=== PATIENT | female | born 1995 | race African-American/Black ===

== ENCOUNTER 2022-11-02 13:20 | Emergency (ER) | payer MEDICAID ==
[~2022-11-02] VITALS: Ht 167.6 cm; Wt 82.0 kg
[2022-11-02 13:30] VITALS: BP 110/66
[2022-11-02] MEDS ORDERED: IBUPROFEN 600MG TABLET PO STA (14:20)
[2022-11-02 15:24] LABS: BASOPHILS % 0.3 % (0.0-2.0); EOSINOPHILS % 0.2 % (0.0-5.0); HEMATOCRIT. 42.4 % (36.0-48.0); HEMOGLOBIN. 13.7 g/dL (12.0-16.0); LYMPHOCYTES % 11.4 % (20.0-50.0); MEAN CORPUSCULAR HEMOGLOBIN 25.5 pg (28.0-32.0); MEAN CORPUSCULAR VOLUME 78.9 fL (81.0-99.0); MONOCYTES % 3.8 % (2.0-8.0); NEUTROPHILS % 84.3 % (40.0-76.0); PLATELET 387 x1000/uL (130-400); RED BLOOD CELL COUNT 5.37 mill/uL (4.2-5.4); RED CELL DISTRIBUTION WIDTH 15.6 % (11.6-14.6)
[2022-11-02 15:34] LABS: CHLORIDE 112 mEq/L (98-107)
[2022-11-02 15:54] LABS: CLARITY URINE CLEAR (CLEAR); COLOR URINE YELLOW (YELLOW); KETONES URINE NEGATIVE (NEGATIVE); LEUKOCYTE ESTERASE URINE TRACE (NEGATIVE); NITRITE URINE NEGATIVE (NEGATIVE); OCCULT BLOOD URINE 3+ (NEGATIVE); PROTEIN URINE TRACE (NEGATIVE); SPECIFIC GRAVITY URINE 1.016 (1.005-1.030); UROBILINOGEN URINE 0.2 E.U./dL (0.2-1.0)
[2022-11-02 16:10] LABS: HCG SCREEN NEGATIVE
[2022-11-02] MEDS ORDERED: ONDA4TAB50 MT (16:27)
[2022-11-02] MEDS ORDERED: NITR-87 MT (16:27)
[2022-11-02] MEDS ORDERED: ONDANSETRON 4MG ODT PO ONE (16:30)
== END 2022-11-02 17:19 | disposition home or self-care (01) ==
LOC: ER 14:18
DX: N93.8 Other specified abnormal uterine and vaginal bleeding (principal); N30.00 Acute cystitis without hematuria
CPT/HCPCS: 36415; 80053; 81003; 84703; 85025; 99283; Q0162

== ENCOUNTER 2023-07-18 20:13 | Inpatient (IN) | payer OTHER, MEDICAID ==
[~2023-07-18] VITALS: Ht 154.9 cm; Wt 92.5 kg
[~2023-07-18 20:13] MED LIST: NITR-87 MT; ONDA4TAB50 MT
[2023-07-18] MEDS ORDERED: ONDANSETRON HCL 4MG/2ML INJ IV STA (20:42)
[2023-07-18] MEDS ORDERED: HALOPERIDOL LACTATE 5MG/ML VIAL IM ONE (20:45)
[2023-07-18] MEDS ORDERED: MORPHINE SULFATE 4 MG/ML CPJ (NOT FOR IM USE) IV ONE (21:00)
[2023-07-18 21:30] LABS: BASOPHILS % 0.3 % (0.0-2.0); EOSINOPHILS % 1.1 % (0.0-5.0); HEMATOCRIT. 35.8 % (36.0-48.0); HEMOGLOBIN. 11.4 g/dL (12.0-16.0); MEAN CORPUSCULAR HEMOGLOBIN 25.7 pg (28.0-32.0); MEAN CORPUSCULAR HGB CONC 31.8 g/dL (31.0-37.0); MEAN CORPUSCULAR VOLUME 80.9 fL (81.0-99.0); MEAN PLATELET VOLUME 9.1 fl (7.4-10.4); NEUTROPHILS % 74.6 % (40.0-76.0); PLATELET 602 x1000/uL (130-400); RED BLOOD CELL COUNT 4.43 mill/uL (4.2-5.4); RED CELL DISTRIBUTION WIDTH 14.5 % (11.6-14.6)
[2023-07-18 21:46] LABS: CHLORIDE 110 mEq/L (98-107); INDEX HEMOLYSI 1 (1-3); INDEX ICTERIC 1 (1-4); INDEX LIPEMIC 1 (1-3); POTASSIUM 3.6 mEq/L (3.5-5.1); SODIUM 135 mEq/L (136-145)
[2023-07-18 21:53] LABS: ALANINE AMINOTRANSFERASE 11 IU/L (13-61); ALBUMIN 3.1 g/dL (3.4-5.0); ASPARTATE AMINOTRANSFERASE 16 IU/L (15-37); BILIRUBIN TOTAL 1.4 mg/dL (0.1-1.0); CARBON DIOXIDE 14 mEq/L (21-32); CREATININE 0.9 mg/dL (0.6-1.3); ETHANOL BLOOD < 10 mg/dL (<10); GLUCOSE 329 mg/dL (70-105); PROTEIN TOTAL 7.1 g/dL (6.0-8.3); UREA NITROGEN BLOOD 11 mg/dL (7-21)
[2023-07-18 21:56] LABS: HCG SCREEN POSITIVE
[2023-07-18] MEDS ORDERED: SODIUM CHLORIDE 0.9% 1,000 ML IV ONE (22:15)
[2023-07-18] MEDS ORDERED: DEXTROSE 50% WATER 50ML SYRINGE IV PRN (22:45)
[2023-07-18] MEDS ORDERED: DEXT 5%/0.9% NACL 1,000 ML IV SCH (22:45)
[2023-07-18] MEDS ORDERED: KCL 20MEQ/100ML PREMIX 100 ML IV PRN (22:45)
[2023-07-18] MEDS ORDERED: SODIUM CHLORIDE 0.9% 1,000 ML IV SCH (22:45)
[2023-07-18] MEDS ORDERED: POTASSIUM CHLORIDE INJ 40 MEQ in SODIUM CHLORIDE 0.9% 230 ML IV PRN (22:45)
[2023-07-18] MEDS ORDERED: INSULIN REGULAR (DRIP) 100 UNITS in SODIUM CHLORIDE 0.9% 99 ML IV SCH (22:45)
[2023-07-18 23:39] LABS: BG BASE EXCESS -8.6 mmol/L (-2.0-2.0); BG CARBOXYHEMOGLOBIN 0.1 % (0.5-1.5); BG DEOXYHEMOGLOBIN 2.7 % (0.0-5.0); BG HCO3 ACT 16.6 mmol/L (22.0-26.0); BG METHEMOGLOBIN 0.1 % (0.0-1.5); BG OXYGEN SATURATION 97.3 % (92.0-98.5); BG OXYHEMOGLOBIN 97.1 % (94.0-97.0); BG PCO2 33.5 mmHg (35.0-45.0); BG PH 7.313 (7.350-7.450); BG PO2 103.1 mmHg (75.0-100.0); BG SAMPLE SITE RIGHT RADIAL; BG TOTAL HEMOGLOBIN 11.5 g/dL (12.0-18.0); BG VENT MODE ROOM AIR
[2023-07-18] MEDS: BLOOD SUGAR DIAGNOSTIC STRIP TEST SCH ×2 (23:41→23:45)
[2023-07-19 00:05] LABS: PHOSPHORUS 4.7 mg/dL (2.5-4.9)
[2023-07-19] MEDS ORDERED: INSULIN REGULAR 100U/100ML PMX 100 ML IV SCH (00:32)
[2023-07-19] MEDS: BLOOD SUGAR DIAGNOSTIC STRIP TEST SCH ×12 (00:50→12:45)
[2023-07-19] MEDS ORDERED: NALOXONE HCL 0.4MG/ML VIAL IV PRN (06:15)
[2023-07-19] MEDS: MORPHINE SULFATE 2 MG/ML CPJ (NOT FOR IM USE) IV PRN ×2 (06:30→10:43)
[2023-07-19 11:53] LABS: CHLORIDE 115 mEq/L (98-107); INDEX HEMOLYSI 3 (1-3); INDEX ICTERIC 1 (1-4); INDEX LIPEMIC 1 (1-3); POTASSIUM 3.9 mEq/L (3.5-5.1); SODIUM 139 mEq/L (136-145)
[2023-07-19 12:02] LABS: ALANINE AMINOTRANSFERASE 10 IU/L (13-61); ASPARTATE AMINOTRANSFERASE 19 IU/L (15-37); BILIRUBIN TOTAL 0.7 mg/dL (0.1-1.0); CALCIUM 7.3 mg/dL (8.5-10.1); CARBON DIOXIDE 24 mEq/L (21-32); CREATININE 0.6 mg/dL (0.6-1.3); GLUCOSE 145 mg/dL (70-105); PHOSPHORUS 2.6 mg/dL (2.5-4.9); PROTEIN TOTAL 5.9 g/dL (6.0-8.3); UREA NITROGEN BLOOD 8 mg/dL (7-21)
[2023-07-19] MEDS: KETOROLAC 30MG/ML VIAL IV PRN ×2 (13:04→18:50)
[2023-07-19] MEDS ORDERED: ACETAMINOPHEN 325MG TABLET PO PRN (13:15)
[2023-07-19 16:55] VITALS: BP 114/51; PULSE 83; RESP 22; TEMP 97.2
[2023-07-19 16:57] VITALS: BP 114/51; PULSE 83; RESP 22; TEMP 97.2
[2023-07-19 20:00] VITALS: BP 114/75; PULSE 100; RESP 24; TEMP 97.9
[2023-07-19] MEDS: INSULIN GLARGINE 100 UNITS/ML SUBCUT SCH (21:06)
[2023-07-19 21:59] LABS: BASOPHILS % 0.3 % (0.0-2.0); DIFFERENTIAL COMMENT 0; EOSINOPHILS % 0.4 % (0.0-5.0); HEMATOCRIT. 23.5 % (36.0-48.0); HEMOGLOBIN. 7.7 g/dL (12.0-16.0); LYMPHOCYTES % 26.5 % (20.0-50.0); MEAN CORPUSCULAR HEMOGLOBIN 26.3 pg (28.0-32.0); MEAN CORPUSCULAR VOLUME 79.9 fL (81.0-99.0); MEAN PLATELET VOLUME 8.6 fl (7.4-10.4); MONOCYTES % 5.6 % (2.0-8.0); NEUTROPHILS % 67.2 % (40.0-76.0); PLATELET 247 x1000/uL (130-400); RED BLOOD CELL COUNT 2.94 mill/uL (4.2-5.4); RED CELL DISTRIBUTION WIDTH 14.1 % (11.6-14.6); WHITE BLOOD COUNT 10.6 x1000/uL (4.5-11.0)
[2023-07-19 22:12] LABS: HCG SCREEN POSITIVE
[2023-07-19 22:14] LABS: ALBUMIN 3.2 g/dL (3.4-5.0); CALCIUM 7.8 mg/dL (8.5-10.1); CARBON DIOXIDE 21 mEq/L (21-32); CHLORIDE 113 mEq/L (98-107); GLUCOSE 101 mg/dL (70-105); INDEX HEMOLYSI 1 (1-3); INDEX ICTERIC 1 (1-4); INDEX LIPEMIC 1 (1-3); POTASSIUM 3.5 mEq/L (3.5-5.1); SODIUM 141 mEq/L (136-145); UREA NITROGEN BLOOD 6 mg/dL (7-21)
[2023-07-19 22:35] LABS: ALANINE AMINOTRANSFERASE 10 IU/L (13-61); ASPARTATE AMINOTRANSFERASE 16 IU/L (15-37); BILIRUBIN TOTAL 0.6 mg/dL (0.1-1.0); CREATININE 0.7 mg/dL (0.6-1.3); PROTEIN TOTAL 6.3 g/dL (6.0-8.3)
[2023-07-20 05:26] LABS: BASOPHILS % 0.3 % (0.0-2.0); DIFFERENTIAL COMMENT 0; EOSINOPHILS % 0.7 % (0.0-5.0); HEMATOCRIT. 23.9 % (36.0-48.0); HEMOGLOBIN. 7.8 g/dL (12.0-16.0); LYMPHOCYTES % 26.4 % (20.0-50.0); MEAN CORPUSCULAR HGB CONC 32.7 g/dL (31.0-37.0); MEAN CORPUSCULAR VOLUME 79.5 fL (81.0-99.0); MEAN PLATELET VOLUME 8.9 fl (7.4-10.4); MONOCYTES % 7.3 % (2.0-8.0); NEUTROPHILS % 65.3 % (40.0-76.0); PLATELET 255 x1000/uL (130-400); RED BLOOD CELL COUNT 3.01 mill/uL (4.2-5.4); RED CELL DISTRIBUTION WIDTH 14.4 % (11.6-14.6); WHITE BLOOD COUNT 8.4 x1000/uL (4.5-11.0)
[2023-07-20 08:00] VITALS: BP 112/54; PULSE 105; RESP 18; TEMP 95.9
[2023-07-20 09:27] LABS: CHLORIDE 115 mEq/L (98-107); INDEX HEMOLYSI 1 (1-3); INDEX ICTERIC 1 (1-4); INDEX LIPEMIC 1 (1-3); POTASSIUM 3.7 mEq/L (3.5-5.1); SODIUM 141 mEq/L (136-145)
[2023-07-20 09:34] LABS: ALANINE AMINOTRANSFERASE 10 IU/L (13-61); ASPARTATE AMINOTRANSFERASE 19 IU/L (15-37); BILIRUBIN TOTAL 0.8 mg/dL (0.1-1.0); CARBON DIOXIDE 20 mEq/L (21-32); CREATININE 0.7 mg/dL (0.6-1.3); GLUCOSE 102 mg/dL (70-105); PROTEIN TOTAL 6.2 g/dL (6.0-8.3); UREA NITROGEN BLOOD 6 mg/dL (7-21)
[2023-07-20] MEDS: INSULIN GLARGINE 100 UNITS/ML SUBCUT SCH ×2 (11:58→21:48)
[2023-07-20] MEDS ORDERED: HYDROCODONE/ACETAMINOPHEN 5/325MG TABLET PO PRN ×2 (14:15→19:45)
[2023-07-20] MEDS: KETOROLAC 30MG/ML VIAL IV PRN ×2 (14:37→22:08)
[2023-07-20] MEDS ORDERED: ROCURONIUM BROMIDE 10MG/ML VIAL 5ML IV ONE (15:08)
[2023-07-20] MEDS ORDERED: SUCCINYLCHOLINE CHLORIDE 200MG/10ML IV ONE (15:08)
[2023-07-20] MEDS ORDERED: CEFAZOLIN SODIUM 1000MG/VIAL ONE (15:08)
[2023-07-20] MEDS ORDERED: MIDAZOLAM HCL 2 MG/2 ML VIAL ONE (15:09)
[2023-07-20] MEDS ORDERED: PROPOFOL 200MG/20ML VIAL IV ONE (15:09)
[2023-07-20] MEDS ORDERED: FENTANYL CITRATE/PF 50MCG/ML 2ML VIAL ONE (15:09)
[2023-07-20] MEDS ORDERED: PHENYLEPHRINE HCL 10 MG/ML 1ML (IV VIAL) IV ONE (15:14)
[2023-07-20] MEDS ORDERED: ALBUMIN HUMAN 12.5GM/50ML (25%) IV ONE (15:43)
[2023-07-20] MEDS ORDERED: GLYCOPYRROLATE 0.2 MG/ML 2ML VIAL ONE (16:44)
[2023-07-20] MEDS ORDERED: NEOSTIGMINE METHYLSULFATE 1MG/ML 10 ML VIAL ONE (16:44)
[2023-07-20] MEDS ORDERED: HYDROMORPHONE HCL/PF 2MG/ML CPJ ONE (17:07)
[2023-07-20] MEDS ORDERED: ONDANSETRON HCL 4MG/2ML INJ IV PRN (19:45)
[2023-07-20] MEDS ORDERED: IBUPROFEN 800MG TABLET PO PRN (19:45)
[2023-07-20 20:00] VITALS: BP 109/48; PULSE 76; RESP 22; TEMP 96.9
[2023-07-20] MEDS: LACTATED RINGERS 1,000 ML IV SCH (22:09)
[2023-07-21] VITALS: BP 107/64; PULSE 99; RESP 18; TEMP 96.9
[2023-07-21] MEDS: KETOROLAC 30MG/ML VIAL IV PRN (03:31)
[2023-07-21] MEDS: LACTATED RINGERS 1,000 ML IV SCH ×3 (03:38→19:45)
[2023-07-21 04:00] VITALS: BP 119/69; PULSE 68; RESP 20; TEMP 97.5
[2023-07-21] MEDS ORDERED: RHO(D) IMMUNE GLOBULIN 300 MCG/SYR IM ONE (06:00)
[2023-07-21 08:00] VITALS: BP 106/64; PULSE 97; RESP 17; TEMP 98
[2023-07-21 08:10] LABS: CHLORIDE 112 mEq/L (98-107); HEMOGLOBIN. 8.4 g/dL (12.0-16.0); INDEX HEMOLYSI 1 (1-3); INDEX ICTERIC 2 (1-4); INDEX LIPEMIC 1 (1-3); LYMPHOCYTES % 9.3 % (20.0-50.0); MEAN CORPUSCULAR HEMOGLOBIN 27.6 pg (28.0-32.0); MEAN CORPUSCULAR HGB CONC 33.5 g/dL (31.0-37.0); MEAN CORPUSCULAR VOLUME 82.2 fL (81.0-99.0); MEAN PLATELET VOLUME 9.4 fl (7.4-10.4); MONOCYTES % 5.3 % (2.0-8.0); NEUTROPHILS % 85.4 % (40.0-76.0); PLATELET 236 x1000/uL (130-400); RED BLOOD CELL COUNT 3.04 mill/uL (4.2-5.4); RED CELL DISTRIBUTION WIDTH 14.2 % (11.6-14.6); SODIUM 138 mEq/L (136-145)
[2023-07-21 08:24] LABS: B-HCG QUANTITATIVE 471 mIU/mL (<3); CARBON DIOXIDE 15 mEq/L (21-32); CREATININE 0.3 mg/dL (0.6-1.3); GLUCOSE 71 mg/dL (70-105); UREA NITROGEN BLOOD 4 mg/dL (7-21)
[2023-07-21] MEDS ORDERED: HYDROCODONE/ACETAMINOPHEN 5/325MG TABLET PO NR (08:45)
[2023-07-21 09:09] LABS: CALCIUM < 5.0 mg/dL (8.5-10.1)
[2023-07-21] MEDS: INSULIN GLARGINE 100 UNITS/ML SUBCUT SCH ×2 (10:00→22:00)
[2023-07-21 12:00] VITALS: BP 110/66; PULSE 98; RESP 18; TEMP 98.5
[2023-07-21] MEDS ORDERED: IBUPROFEN 800MG TABLET PO NR (13:00)
[2023-07-21] MEDS ORDERED: DEXTROSE 50% WATER 50ML SYRINGE IV PRN (14:30)
[2023-07-21 16:00] VITALS: BP 106/65; PULSE 97; RESP 20; TEMP 97.8
[2023-07-21] MEDS: BLOOD SUGAR DIAGNOSTIC STRIP TEST SCH ×2 (17:10→21:00)
[2023-07-21] MEDS: HYDROCODONE/ACETAMINOPHEN 5/325MG TABLET PO PRN (17:25)
[2023-07-21] MEDS: INSULIN LISPRO 100 UNITS/ML SUBCUT SCH ×2 (17:40→21:00)
[2023-07-21 20:00] VITALS: BP 109/67; PULSE 94; RESP 18; TEMP 96.4
[2023-07-21] MEDS: IBUPROFEN 800MG TABLET PO PRN (22:04)
[2023-07-22] MEDS: LACTATED RINGERS 1,000 ML IV SCH ×3 (03:45→19:45)
[2023-07-22] MEDS: HYDROCODONE/ACETAMINOPHEN 5/325MG TABLET PO PRN (04:50)
[2023-07-22] MEDS: INSULIN LISPRO 100 UNITS/ML SUBCUT SCH ×4 (07:40→21:00)
[2023-07-22] MEDS: BLOOD SUGAR DIAGNOSTIC STRIP TEST SCH ×4 (07:57→21:00)
[2023-07-22] MEDS: IBUPROFEN 800MG TABLET PO PRN (08:04)
[2023-07-22] MEDS: INSULIN GLARGINE 100 UNITS/ML SUBCUT SCH ×2 (09:45→22:00)
[2023-07-22 12:30] VITALS: BP 128/68; PULSE 88; RESP 18; TEMP 98.2
[2023-07-22] MEDS: HYDROCODONE/ACETAMINOPHEN 10/325MG TABLET PO PRN ×2 (14:16→21:27)
[2023-07-22 16:22] VITALS: BP 108/54; PULSE 78; RESP 20; TEMP 97.8
[2023-07-22 18:42] LABS: HEMATOCRIT 27.5 % (36.0-48.0); HEMOGLOBIN 9.1 g/dL (12.0-16.0)
[2023-07-22 18:58] LABS: CALCIUM 8.9 mg/dL (8.5-10.1); CARBON DIOXIDE 24 mEq/L (21-32); CHLORIDE 109 mEq/L (98-107); GLUCOSE 102 mg/dL (70-105); INDEX HEMOLYSI 1 (1-3); INDEX ICTERIC 2 (1-4); INDEX LIPEMIC 1 (1-3); POTASSIUM 3.1 mEq/L (3.5-5.1); SODIUM 141 mEq/L (136-145); UREA NITROGEN BLOOD 7 mg/dL (7-21)
[2023-07-22 19:02] LABS: CREATININE 0.6 mg/dL (0.6-1.3)
[2023-07-22] MEDS ORDERED: POTASSIUM CHLORIDE 20MEQ TABLET SR PO NR (20:45)
[2023-07-23] MEDS: LACTATED RINGERS 1,000 ML IV SCH (03:45)
[2023-07-23 04:00] VITALS: BP 100/61; PULSE 84; RESP 20; TEMP 96.2
[2023-07-23] MEDS: BLOOD SUGAR DIAGNOSTIC STRIP TEST SCH ×2 (07:18→12:10)
[2023-07-23] MEDS: INSULIN LISPRO 100 UNITS/ML SUBCUT SCH ×2 (07:18→12:40)
[2023-07-23 08:00] VITALS: BP 112/63; PULSE 88; RESP 18; TEMP 97
[2023-07-23] MEDS: HYDROCODONE/ACETAMINOPHEN 10/325MG TABLET PO PRN (08:58)
[2023-07-23] MEDS: INSULIN GLARGINE 100 UNITS/ML SUBCUT SCH (10:00)
[2023-07-23 12:00] VITALS: BP 114/60; PULSE 85; RESP 14; TEMP 97
[2023-07-23 16:00] VITALS: BP 125/65; PULSE 88; RESP 20; TEMP 97
[2023-07-23 16:47] LABS: CALCIUM 8.5 mg/dL (8.5-10.1); CHLORIDE 108 mEq/L (98-107); INDEX HEMOLYSI 1 (1-3); INDEX ICTERIC 1 (1-4); INDEX LIPEMIC 1 (1-3); POTASSIUM 3.7 mEq/L (3.5-5.1); SODIUM 139 mEq/L (136-145)
[2023-07-23 16:51] LABS: CARBON DIOXIDE 27 mEq/L (21-32); CREATININE 0.6 mg/dL (0.6-1.3); GLUCOSE 116 mg/dL (70-105); UREA NITROGEN BLOOD 7 mg/dL (7-21)
[2023-07-23 17:46] VITALS: BP 125/65; PULSE 68; TEMP 97; O2SAT 100
== END 2023-07-23 19:12 | disposition home or self-care (01) | DRG 817 ==
LOC: ER 20:13 → MICUSO 23:09 → EDBEDREQTM 23:45 → EDBEDREQ 23:45 → 8WST 07-19 16:10
PROVIDERS: ADMIT Internal Medicine; ATTEND Internal Medicine
PROC: 0UT50ZZ Resection of Right Fallopian Tube, Open Approach (ICD-10-PCS; principal; 2023-07-20)
PROC: 10T20ZZ Resection of Products of Conception, Ectopic, Open Approach (ICD-10-PCS; 2023-07-20)
PROC: 30233N1 Transfusion of Nonautologous Red Blood Cells into Peripheral Vein, Percutaneous Approach (ICD-10-PCS; 2023-07-20)
PROC: 3E0334Z Introduction of Serum, Toxoid and Vaccine into Peripheral Vein, Percutaneous Approach (ICD-10-PCS; 2023-07-21)
DX: O00.90 Unspecified ectopic pregnancy without intrauterine pregnancy (principal); E11.10 Type 2 diabetes mellitus with ketoacidosis without coma; K66.1 Hemoperitoneum; Z59.00 Homelessness unspecified; D64.9 Anemia, unspecified; D72.829 Elevated white blood cell count, unspecified; Z68.38 Body mass index [BMI] 38.0-38.9, adult; E66.9 Obesity, unspecified; D75.839 Thrombocytosis, unspecified
CPT/HCPCS: 36415; 36600; 76830; 76856; 80048; 80053; 80320; 82375; 82805; 82962; 83036; 83735; 83930; 84100; 84702; 84703; 85014; 85018; 85025; 86850; 86900; 86920; 88302; 90384; 97162; 99285; J0330; J0690; J1170; J1630; J1815; J1885; J2250; J2270; J2370; J2405; J2704; J2710; J3010; J3490; J7030; J7042; J7120; P9016; P9047; G0480; J2791